=== PATIENT | female | born 1985 | race Caucasian/White ===

== ENCOUNTER 2021-06-22 20:51 | Emergency (ER) | payer MEDICAID ==
[2021-06-22] MEDS ORDERED: Ondansetron 4 MG Tab.DIS PO PRN (22:33)
[2021-06-23] MEDS ORDERED: Ketorolac 30 MG/ML SDV IM ONE (00:12)
== END 2021-06-23 01:32 | disposition home or self-care (01) ==
LOC: FB.ED 20:51
DX: N20.0 Calculus of kidney (principal); I10 Essential (primary) hypertension; E66.01 Morbid (severe) obesity due to excess calories; D72.829 Elevated white blood cell count, unspecified; R73.9 Hyperglycemia, unspecified; Z88.0 Allergy status to penicillin; Z79.899 Other long term (current) drug therapy
CPT/HCPCS: 36415; 74176; 80053; 81001; 85025; 87086; 96372; 99284; 99284-25; J1885; Q0162